=== PATIENT | female | born 1940 | race Caucasian/White ===

== ENCOUNTER → 2016-10-28 | Outpatient (CLI) | payer MEDICARE, OTHER | END | disposition home or self-care (01) | LOC: GMAB 12:33 | PROVIDERS: ATTEND Family Medicine | DX: E78.2 Mixed hyperlipidemia (principal); R41.81 Age-related cognitive decline; R41.9 Unspecified symptoms and signs involving cognitive functions and awareness ==

== ENCOUNTER → 2016-11-03 | Outpatient (CLI) | payer MEDICARE, OTHER ==
--- NOTE | 2016-11-03 08:42 | MRI ---
EXAM DESCRIPTION: Brain w/o Contrast CLINICAL HISTORY: DEMENTIA COMPARISON: None available TECHNIQUE: Non contrast MRI of the brain is performed according to our usual protocol including multiplanar multi sequence technique. FINDINGS: No hemorrhage, mass effect, diffusion restriction, or acute infarction is present. There is normal configuration of the ventricles and sulci. Moderate generalized volume loss is present. Mild patchy T2/FLAIR hyperintensities in the supratentorial white matter. No abnormal extra-axial fluid collections are present. Normal flow voids are present. The calvarium is intact. Mild mucosal thickening in the maxillary and ethmoid sinuses. Small bilateral mastoid effusions. IMPRESSION: 1. No acute intracranial abnormality. 2. Moderate volume loss. 3. Mild chronic microangiopathy. 4. Small bilateral mastoid effusions. Electronically signed by: Juan Miguel Scott MD 11/03/2016 8:41 AM CDT
== END | disposition home or self-care (01) ==
LOC: MRI 07:40
PROVIDERS: ATTEND Family Medicine
DX: R41.81 Age-related cognitive decline (principal)

== ENCOUNTER → 2017-01-25 | Outpatient (CLI) | payer MEDICARE | LOC: GMAB 17:30 | PROVIDERS: ATTEND Family Medicine | DX: L03.311 Cellulitis of abdominal wall (principal) ==

== ENCOUNTER → 2017-01-31 | Outpatient (CLI) | payer MEDICARE, OTHER | END | disposition home or self-care (01) | LOC: GMAB 10:34 | PROVIDERS: ATTEND Family Medicine | DX: E03.9 Hypothyroidism, unspecified (principal) ==

== ENCOUNTER 2017-05-15 05:41 | Day surgery (SDC) | payer MEDICARE, OTHER ==
[2017-05-15] MEDS ORDERED: PROPARACAINE 0.5% OPHTH SOL 15 ML BTTL ONE (05:48)
[2017-05-15] MEDS ORDERED: TROP 1%/CYCLOPEN 1%/PHENYL 2% DROPS ONE (05:48)
[2017-05-15] MEDS ORDERED: MIDAZOLAM INJ 2 MG/2 ML VIAL ONE (06:56)
[2017-05-15] MEDS ORDERED: PROPARACAINE 0.5% OPHTH SOL 15 ML BTTL RIGHT_EYE ONE (08:23)
[2017-05-15] MEDS ORDERED: DEXAMETHASONE 0.1% OPHTH SOL 1 DROP RIGHT_EYE ONE ×2 (08:30→08:41)
[2017-05-15] MEDS ORDERED: LIDOCAINE 1% PF 2 ML AMP INJ ONE (08:30)
[2017-05-15] MEDS ORDERED: BRIMONIDINE 0.2% OPHTH DROPS RIGHT_EYE ONE ×2 (08:31→08:41)
[2017-05-15] MEDS: TOBRAMYCIN SULF 0.3 % OPHT SOL 1 DROP RIGHT_EYE ONE (08:31)
[2017-05-15] MEDS ORDERED: TOBRAMYCIN SULF 0.3 % OPHT SOL 1 DROP RIGHT_EYE ONE (08:41)
[2017-05-16] MEDS: TOBRAMYCIN SULF 0.3 % OPHT SOL 1 DROP RIGHT_EYE ONE (07:25)
[2017-05-16 09:24] VITALS: BP 128/71; TEMP 97.6; O2SAT 99
== END 2017-05-15 09:30 | disposition home or self-care (01) ==
LOC: AMB 05:41
PROVIDERS: ATTEND Ophthalmology
DX: H25.11 Age-related nuclear cataract, right eye (principal); I10 Essential (primary) hypertension; I25.10 Atherosclerotic heart disease of native coronary artery without angina pectoris; E66.9 Obesity, unspecified; F03.90 Unspecified dementia, unspecified severity, without behavioral disturbance, psychotic disturbance, mood disturbance, and anxiety; Z88.0 Allergy status to penicillin; Z88.8 Allergy status to other drugs, medicaments and biological substances; Z79.82 Long term (current) use of aspirin; Z79.899 Other long term (current) drug therapy
CPT/HCPCS: 00142; 66984; J2250

== ENCOUNTER 2017-05-29 05:36 | Day surgery (SDC) | payer MEDICARE, OTHER ==
[2017-05-29] MEDS ORDERED: TROP 1%/CYCLOPEN 1%/PHENYL 2% DROPS ONE (05:48)
[2017-05-29] MEDS ORDERED: MIDAZOLAM INJ 2 MG/2 ML VIAL ONE (07:11)
[2017-05-29] MEDS: PROPARACAINE 0.5% OPHTH SOL 15 ML BTTL ONE ×2 (07:20→08:20)
[2017-05-29] MEDS: TOBRAMYCIN SULF 0.3 % OPHT SOL 1 DROP LEFT_EYE ONE ×2 (07:20→08:30)
[2017-05-29] MEDS ORDERED: LIDOCAINE 1% PF 2 ML AMP INJ ONE (08:24)
[2017-05-29] MEDS ORDERED: DEXAMETHASONE 0.1% OPHTH SOL 1 DROP LEFT_EYE ONE ×2 (08:30→08:38)
[2017-05-29] MEDS ORDERED: BRIMONIDINE 0.2% OPHTH DROPS LEFT_EYE ONE ×2 (08:30→08:38)
[2017-05-29] MEDS ORDERED: TOBRAMYCIN SULF 0.3 % OPHT SOL 1 DROP LEFT_EYE ONE (08:38)
[2017-05-30 06:57] VITALS: BP 144/70; TEMP 97; O2SAT 100
== END 2017-05-29 09:15 | disposition home or self-care (01) ==
LOC: AMB 05:36
PROVIDERS: ATTEND Ophthalmology
DX: H25.12 Age-related nuclear cataract, left eye (principal); I10 Essential (primary) hypertension; Z79.82 Long term (current) use of aspirin; Z79.899 Other long term (current) drug therapy
CPT/HCPCS: 00142; 66984; J2250

== ENCOUNTER → 2017-08-28 | Outpatient (CLI) | payer MEDICARE, OTHER ==
--- NOTE | 2017-08-28 09:07 | RAD ---
EXAM DESCRIPTION: Pelvis CLINICAL HISTORY: 77 years Female, PAIN IN LEFT HIP COMPARISON: None. TECHNIQUE: Supine x-ray view of pelvis and hips FINDINGS: Bones of the pelvic ring appear intact. Degenerative changes are seen in the lower L-spine and SI joints. Enthesopathic changes are seen at the iliac crests and at the proximal greater trochanters of the femurs. Mild narrowing of the medial hip joints bilaterally. There is mild inferior left acetabular spurring. Sacrum appears intact. IMPRESSION: Negative for fracture or dislocation. Electronically signed by: Kiko De La Cruz MD 08/28/2017 9:06 AM CDT
== END ==
LOC: RAD 07:45
PROVIDERS: ATTEND Orthopaedic Surgery
DX: M25.552 Pain in left hip (principal)